=== PATIENT | female | born 1955 | race Caucasian/White ===

== ENCOUNTER → 2017-12-02 | Outpatient (CLI) | payer MEDICARE, BC ==
[~2017-12-02] MED LIST: BUPR300T3 PO; CEFU500T46 PO; CLON0.5T11 PO; CYCL10TA2 PO; DICL75TA PO; DULO60CA6 PO; FURO40TA4 PO; GABA-586 PO; HYDR-2762 PO; IOHEXOL 300 MG/ML 100ML VIAL. IV ONE; LEVO150T5 PO; MOME13HF IH; MONT10TA6 PO; OMEP20CA9 PO; PROM25TA10 PO; RIVA20TA2 PO; ROPI1TAB PO; VENTOLIN HFA18 GM INH
--- NOTE | 2017-12-02 16:47 | KCIC ---
PQRS Compliance Statement: One or more of the following individualized dose reduction techniques were utilized for this examination: 1. Automated exposure control 2. Adjustment of the mA and/or kV according to patient size 3. Use of iterative reconstruction technique CT ABDOMEN PELVIS WO/W Clinical Indication: Gross hematuria, history of recurrent urinary tract infection. Comparison: None. TECHNIQUE: Helical CT imaging of the abdomen and pelvis is performed before and after 95 cc of Omnipaque 300 IV contrast. Postcontrast imaging occurred during nephrographic and delayed phases. Findings: Outside of [id number]-xy-[id number] artifact degrades image quality. There is a moderate-sized loculated right pleural effusion. There is consolidation in the adjacent right lower lobe. Left lung essentially clear. There is cardiomegaly. Cholecystectomy. Hepatosplenomegaly. Pancreas, adrenal glands, and abdominal aorta caliber are normal. There is a 14 x 7 mm calculus in the right renal pelvis. There is a 4 mm calculus in the lower pole the right kidney. There is no left renal calculus. There is no ureteral calculus. Kidneys enhance symmetrically. No hydronephrosis. On delayed images, minimal contrast distention of the upper left collecting system. Ureters are contrast opacified and appear normal. Urinary bladder is mostly decompressed accentuating the wall thickness. Postsurgical change of the stomach. There is large ventral hernia mesh. Diastasis of rectus abdominis muscles inferior to the mesh with protrusion of fat and bowel. There is no dilated small bowel. Moderate sigmoid colon diverticulosis. Scattered stool in the colon. No colon wall thickening. The appendix is normal. Uterus and ovaries unremarkable. No pelvic free fluid. Vacuum disc phenomenon in the lumbar spine. IMPRESSION: 1. Urinary bladder is mostly decompressed accentuating wall thickness. 2. There are 2 right renal calculi. No obstructive uropathy. 3. Moderate-sized loculated right pleural effusion. Consolidation in the adjacent right lower lobe. Recommend comparison to prior imaging. 4. Hepatosplenomegaly. 5. Moderate sigmoid colon diverticulosis without diverticulitis. Electronically signed by: James Garcia MD (12/02/2017 4:44 PM) [id number]
== END | disposition home or self-care (01) ==
LOC: KCIC CT 13:14
PROVIDERS: ATTEND Family Medicine
DX: N20.0 Calculus of kidney (principal); J90 Pleural effusion, not elsewhere classified; K57.30 Diverticulosis of large intestine without perforation or abscess without bleeding; K43.9 Ventral hernia without obstruction or gangrene; I51.7 Cardiomegaly; R16.2 Hepatomegaly with splenomegaly, not elsewhere classified; Z87.440 Personal history of urinary (tract) infections
CPT/HCPCS: 74178; 82565; Q9967

== ENCOUNTER → 2020-07-30 | Outpatient (CLI) | payer MEDICARE, BC ==
[~2020-07-30] MED LIST changes: +CLON-77 PO; -CLON0.5T11 PO; -GABA-586 PO; +GABA300C18 PO; -HYDR-2762 PO; +HYDR-2765 PO; -IOHEXOL 300 MG/ML 100ML VIAL. IV ONE; +MONT10TA49 PO; -MONT10TA6 PO; +OMEP20CA16 PO; -OMEP20CA9 PO
--- NOTE | 2020-07-30 15:21 | PDOC1 ---
INITIAL PAIN CONSULT DATE OF SERVICE: DOS: DATE: 07/30/20 TIME: 15:12 CHIEF COMPLAINT: Chief Complaint: Low back and bilateral lower extremity pain HISTORY OF PRESENT ILLNESS: 64-year-old female presents history of pain low back bilateral lower extremities for many years approximate 20 years ago but on and off over the years getting worse and better patient reports that been flaring up over the past year or so and she has actually seen a outside facility had 2 lumbar epidural steroid injections at [facility] within the last 2months. Patient reports the pain was much better after the first injection but not as significantly reduced after the second injection first 1 May 24 and second on June 24, 2020. Patient reports the pain is in the low back more on the right side than the left and present bilaterally described as constant aching the back radiating worse with walking weightbearing aching sensation in the back and the legs radiating the posterior gluteus posterior lateral thighs anterior thighs to the medial thighs worse on the right side patient reports that her disability rating 0-10 10 being worse than 8 with an home responsibilities 9 with recreation social activity 8 with self-care and life support activities. Patient did have plain films of the [facility] showing anterior subluxation slightly of L4 on L5, moderate degenerative disc and facet joint changes throughout with some interspinous narrowing posteriorly in the lower lumbar spine. Patient has been doing stretching strength exercises on her own has had no formal physical therapy currently patient has been tried [id number] analgesics which have not been decreasing the pain significantly. Patient reports no loss of motor function with significant fatigability especially the right leg with standing and walking. Patient presents in a wheelchair today. PAST MEDICAL HISTORY: PMH: Arthritis, dizziness, esophageal reflux, atrial fibrillation, diverticulitis, depression anxiety, incontinence, history of DVTs, tracheal and bronchial malacia PREVIOUS SURGERIES: Past Surgical Hx: Abdominal hernia repair, gastroplasty, cholecystectomy, carpal tunnel repair, tonsillectomy CURRENT MEDICATIONS: Current Meds: Active Scripts Medications Dose Route/Sig Max Daily Dose Days Date Category Singulair Tablet (Montelukast Sodium) 10 Mg Tablet 1 Tab PO DAILY 12/01/17 Reported Diclofenac Sodium 75 Mg Tablet.dr 1 Tab PO BID 12/01/17 Reported Omeprazole 20 Mg Capsule.dr 1 Cap PO DAILY 12/01/17 Reported Furosemide 40 Mg Tablet 1 Tab PO DAILY 12/01/17 Reported Gabapentin 300 Mg Capsule 300 Mg PO TID 12/01/17 Reported Wellbutrin Xl (Bupropion Hcl) 300 Mg Tab.er.24h 1 Tab PO DAILY 12/01/17 Reported Cymbalta (Duloxetine Hcl) 60 Mg Capsule.dr 1 Cap PO DAILY 12/01/17 Reported Cyclobenzaprine Hcl 10 Mg Tablet 1 Tab PO TID 12/01/17 Reported Hydrocodone-Apap 7.5-325 (Hydrocodone Bit/Acetaminophen) 1 Each Tablet 1 Tab PO PRN Q6HRS PRN 12/01/17 Reported Levothyroxine Sodium 150 Mcg Tablet 1 Tab PO DAILY 12/01/17 Reported Xarelto (Rivaroxaban) 20 Mg Tablet 20 Mg PO DAILY 12/01/17 Reported Clonazepam 0.5 Mg Tablet 1 Tab PO DAILY 12/01/17 Reported Promethazine Hcl 25 Mg Tablet 1 Tab PO PRN Q6HRS 12/01/17 Reported Cefuroxime (Cefuroxime Axetil) 500 Mg Tablet 1 Tab PO BID 12/01/17 Reported Ventolin Hfa Inhaler (Albuterol Sulfate) 18 Gm Hfa.aer.ad 2 Puff INH Q4HRS 12/01/17 Reported Dulera 200 Mcg/5 Mcg Inhaler (Mometasone/Formoterol) 13 Gm Hfa.aer.ad 2 Puff IH BID 12/01/17 Reported Requip (Ropinirole Hcl) 1 Mg Tablet 1 Tab PO QHS 12/01/17 Reported ALLERGIES; Allergies: Coded Allergies: No Known Drug Allergies (Unverified , 12/02/17) FAMILY HISTORY: Family Hx: Asthma, COPD, heart disease, strokes, lymphatic swelling SOCIAL HISTORY: Social Hx: Patient is 1-2 alcoholic drinks a year and not smoke says any illegal illicit or recreational drugs is single lives locally in [place], [place] REVIEW OF SYSTEMS: ROS: Positive for those items mentioned in history of present illness, all systems are reviewed, otherwise negative ,and are complete full and well-documented on patient's chart. PHYSICAL EXAM: VS: Blood pressure is 122/68 pulse 75 respirations 16 temperature 98.0 F height 5 feet 2 inches weight 326 pounds PE: PHYSICAL EXAMINATION: GENERAL: The patient is awake, alert, oriented, appropriate, very pleasant demeanor HEENT: Shows normocephalic, atraumatic. Extraocular movements are intact and symmetrical. Oral cavity: Mucous membranes moist and pink. NECK: Shows anterior throat supple without palpable lymphadenopathy noted. Swallow reflex symmetrical. CHEST: Shows normal on inspection. Breath sounds are clear bilaterally, distant but no rales rhonchi or wheezes auscultated. HEART: Shows S1, S2 clear. No murmurs auscultated. ABDOMEN: Soft, nontender, nondistended, obese. No palpable organomegaly is noted. BACK: Shows spine grossly in the midline. Normal-appearing cervical lordotic curvature. There is slightly increased thoracic kyphosis, some minor flattening of the lumbar lordotic curvature. Lumbar paraspinous muscles show symmetrical on inspection, on palpation shows some moderate tenderness diffusely throughout the upper, middle and lower distribution of the paraspinous muscles bilaterally and also into the lower thoracic paraspinous musculature, firm and tender, but without specific trigger points, without radiation of pain. The patient has good rotational motion of the lumbar spine, both laterally as well as extension and flexion without significant difficulty. EXTREMITIES: Lower extremities show deep tendon reflexes 1+ in the patellar and tendo calcaneus tendons. Motor exam is 3-4 on a scale of 5 with right dorsif lexion, extension, quadriceps and hamstring flexion and 3-4/5 on the left. Peripheral pulses are undetectable posterior tibial. 3+ weeping on the right, peripheral edema is noted bilaterally. SKIN: Shows warm and dry, good turgor. No edema. No sores, rashes or bruising throughout. IMPRESSION: Impression: 64-year-old female with long history low back bilateral lower extremity pain and radicular fashion Plain films lumbar spine as noted Recent lumbar epidural steroid injections with good initial response Obesity Arthritis Hypertension Plan: Options were discussed with the patient including conservative medical management continued physical therapies and interventional techniques. Patient did well with interventional techniques she would like to pursue this today as well. We discussed a lumbar epidural steroid injection using description as well as anatomical models described procedure. Patient is familiar with these and would like to proceed. Risks were discussed including but not limited to: Bleeding, infection, possibility of epidural hematoma and subsequent neurological compromise, dural puncture, headaches, spinal cord and/or nerve damage, side effects of steroid medication, and poor results regarding pain control. Patient understands and wished to proceed. Patient will return to the clinic in approximately 2 weeks for follow-up. Patient was counseled as return appointment activity level and side effects to be aware of. Procedure is lumbar epidural steroid injection under local anesthetic using sterile prep and drape at the L4-5 level using C-arm fluoroscopic guidance in both AP and lateral views medications injected is 120 mg Depo-Medrol +10mL preservative-free normal saline and 2 mL contrast- condition at discharge is stable patient tolerated procedure well had no complications. SHAYY ESPINAL MD Jul 30, 2020 15:21
== END | disposition home or self-care (01) ==
LOC: PNCL 10:41
PROVIDERS: ATTEND Anesthesiology
DX: M54.5 Low back pain (principal); M79.605 Pain in left leg; M79.604 Pain in right leg; M19.90 Unspecified osteoarthritis, unspecified site; K21.9 Gastro-esophageal reflux disease without esophagitis; I48.91 Unspecified atrial fibrillation; F41.9 Anxiety disorder, unspecified; F32.9 Major depressive disorder, single episode, unspecified; E66.9 Obesity, unspecified; I10 Essential (primary) hypertension; Z90.49 Acquired absence of other specified parts of digestive tract; Z98.890 Other specified postprocedural states; Z82.49 Family history of ischemic heart disease and other diseases of the circulatory system; Z79.899 Other long term (current) drug therapy
CPT/HCPCS: 62323; 99214; G0463